=== PATIENT | female | born 2005 | race Caucasian/White ===

== ENCOUNTER 2023-02-10 10:00 | Outpatient (AMB) | payer OTHER, SELFPAY ==
--- NOTE | 2023-02-10 10:02 | MHC.OFFWIV ---
Intake Vital Signs 02/10/23 10:05 Height 5 ft 4 in Weight 166 lb 6 oz BMI 28.6 BP 100/60 Blood Pressure Location Rt brachial Position Sitting Respiration 12 Pulse 102 H Pulse Source Pulse Oximeter Pulse Oximetry (%) 99 Oxygen Delivery Method Room Air Intake Visit Reasons: ? UTI Intake Note: Patient reports symptoms of painful urination, feeling of burning when urinating and noticing blood when wiping after urinating. Patient reports this has been ongoing since wednesday evening. Patient reports she cannot use the bathroom at this time. Patient Tobacco Use Status: Never used Tobacco Manager Secondary Required: No Accompanied by: Self / Same As Patient Allergies ibuprofen Allergy (Severe, Verified 02/10/23 10:24) Hives Medication List - Last Reconciled 02/10/23 by DIMAS Vee- amoxicillin 500 mg PO Q12H 10 days Do you need a note to return to daycare/school/sports/work: No HPI HPI Comments History of Present Illness Details here today w c/o Sx that started on Wednesday: trouble urinating, burning, cramping, urine is dark and smells bad. Yesterday x 1 noticed blood on toilet paper while wiping. LMP 01/29/23 Not on control Sexually active There is a chance of Denies vaginal d/c, itch, rash, lesions. Denies concern for STD. Reports monogomous relationship w/ frequent STD testing, last time 4 months ago. Denies fever, chills. Denies hx of urinary infections. Vapes nicotine. Denies n/v. Reports normal appetite. DEnies back pain. PFSH Social History Patient Tobacco Use Status: Never used Tobacco Review of Systems Const All systems reviewed & are unremarkable except as noted in HPI and below Physical Exam Vital Signs: Last Vital Signs Pulse 102 H 02/10/23 10:05 Resp 12 02/10/23 10:05 BP 100/60 02/10/23 10:05 Pulse Ox 99 02/10/23 10:05 Oxygen Delivery Method Room Air 02/10/23 10:05 BMI result Body Mass Index 28.6 Const Other: awake alert oriented in NAD MMM RRR Speaking in full sentences No CVAT bilat + suprapubic tenderness. No rebound tenderness or rigidity. Skin pink, warm, dry. Results AMB Test Urine AMB Test Urine Negative Last Edit by Denise Watkins CMA on 02/10/23 10:56 AMB Urinalysis Dipstick UR Leukocytes Negative Last Edit by Denise Watkins CMA on 02/10/23 10:59 UR Nitrite Negative Last Edit by Denise Watkins, NAVI on 02/10/23 10:59 UR Urobilinogen Normal Last Edit by Denise Watkins, NAVI on 02/10/23 10:59 UR Protein Negative Last Edit by Denise Watkins, NAVI on 02/10/23 10:59 UR Ph 6.5 Last Edit by Denise Watkins, NAVI on 02/10/23 10:59 UR Blood Negative Last Edit by Denise Watkins, NAVI on 02/10/23 10:59 UR Specific Adin 1.020 Last Edit by Dneise Watkins, NAVI on 02/10/23 10:59 UR Ketone Negative Last Edit by Denise Watkins, NAVI on 02/10/23 10:59 UR Bilirubin Negative Last Edit by Denise Watkins, NAVI on 02/10/23 10:59 UR Glucose Negative Last Edit by Denise Watkins CMA on 02/10/23 10:59 Assessment & Plan Assessment & Plan (1) UTI symptoms: Code(s): R39.9 - Unspecified symptoms and signs involving the genitourinary system Orders: Orders Urine Dipstick Today R39.9 - Unspecified symptoms and signs involving the genitourinary system AMB HCG Urine Test Today R39.9 - Unspecified symptoms and signs involving the genitourinary system Medications: New nitrofurantoin macrocrystal must administer with a meal/food 100 mg PO BID 6 caps 0RF 3 days Patient Instructions: Despite negative urine dip today in the office she is symptomatic. Therefore I will treat empirically with antibiotics for 3 days. I have advised her to take this with food to prevent GI upset. If her symptoms do not clear after completion of the antibiotic she should return to our office or her primary care provider for further workup. Coding Level of Care Code Est Pt Level 3 (21500) Diagnoses UTI symptoms R39.9
[2023-02-10 10:05] VITALS: BP 100/60; PULSE 102; RESP 12; O2SAT 99; BMI 28.6
== END 2023-02-10 11:37 | disposition home or self-care (01) ==
PROVIDERS: Visit Provider Nurse Practitioner Family
DX: R39.9 Unspecified symptoms and signs involving the genitourinary system (principal)
CPT/HCPCS: 81025; 99213